=== PATIENT | female | born 1985 | race Caucasian/White ===

== ENCOUNTER 2018-03-26 11:46 | Day surgery (SDC) | payer OTHER ==
[2018-03-26] MEDS ORDERED: LR 1,000 ML IV ONE (11:58)
--- NOTE | 2018-03-26 12:06 | PDANEPAE ---
ANE History of Present Illness kidney stone ANE Past Medical History - Cardiovascular History Hx Hypertension: Yes Hx Arrhythmias: No Hx Chest Pain: No Hx Coronary Artery / Peripheral Vascular Disease: No Hx CHF / Valvular Disease: No Hx Palpitations: No Cardiovascular History Comment: JUST STARTED ON [place] PCP MONITORS - Pulmonary History Hx COPD: No Hx Asthma/Reactive Airway Disease: No Hx Recent Upper Respiratory Infection: No Hx Oxygen in Use at Home: No Hx Sleep Apnea: No Sleep Apnea Screening Result - Last Documented: Negative - Neurologic History Hx Cerebrovascular Accident: No Hx Seizures: No Hx Dementia: No - Endocrine History Hx Diabetes: No - Renal History Hx Renal Disorders: Yes Renal History Comment: CURRENT STONE AND URETHRA POLYP. HX OF UTI'S. HX OF KIDNEY STONES TREATMENT X 20+ - Liver History Hx Hepatic Disorders: No - Neurological & Psychiatric Hx Hx Neurological and Psychiatric Disorders: Yes Neurological / Psychiatric History Comment: ANXIETY - Cancer History Hx Cancer: No - Congenital Disorder History Hx Congenital Disorders: No - GI History Hx Gastrointestinal Disorders: Yes Gastrointestinal History Comment: REFLUX- NO MEDS CURRENTLY - Other Health History Other Health History: WEARS CONTACTS. CHRONIC PAIN. LUPUS. RA - Chronic Pain History Chronic Pain: Yes (CHRONIC BACK PAIN) - Surgical History Prior Surgeries: STAS. APPY. TUBAL LIGATION ANE Review of Systems Review of Systems: - Exercise capacity Exercise capacity: >=4 METS METS (RN): 4 METS ANE Patient History - Allergies Allergies/Adverse Reactions: amoxicillin [From Augmentin] Allergy (Verified 03/25/18 12:42) HX OF RXN BUT SHE THINKS SHE MAY HAVE HAD IT SINCE clavulanic acid [From Augmentin] Allergy (Verified 03/25/18 12:42) HX OF RXN BUT SHE THINKS SHE MAY HAVE HAD IT SINCE - Home Medications Home Medications: Cymbalta 03/25/18 [Last Taken 03/25/18] Losartan Potassium 03/25/18 [Last Taken 03/25/18] METHADONE HCL 20 mg PO TID 03/25/18 [Last Taken 03/26/18 05:00 20 MG] Mvi with Vit K 03/25/18 [Last Taken 03/25/18] - Smoking Hx Smoking Status: Light smoker - Family Anes Hx Family Hx Anesthesia Complications: NONE ANE Labs/Vital Signs - Vital Signs Height: 167.64 cm Weight: 90.718 kg ANE Physical Exam - Airway Neck exam: FROM Mallampati Score: Class 2 - Pulmonary Pulmonary: no respiratory distress - Cardiovascular Cardiovascular: regular rate and rhythym - ASA Status ASA Status: II ANE Anesthesia Plan Anesthesia Plan: GA w LMA
[2018-03-26] MEDS ORDERED: PROPOFOL 200 MG/20 ML VIAL ONE (12:08)
[2018-03-26] MEDS ORDERED: LIDOCAINE 2% 2 ML INJ ONE ×2 (12:09)
[2018-03-26] MEDS ORDERED: DEXAMETHASONE 4 MG/ML VIAL ONE ×2 (12:09)
[2018-03-26] MEDS ORDERED: ONDANSETRON 4 MG/2 ML VIAL ONE (12:09)
[2018-03-26] MEDS ORDERED: levOFLOXACIN 500 MG/DEXTROSE 100 ML IV ONE (13:24)
[2018-03-26] MEDS ORDERED: OPIUM/BELLADONNA ALKALO SUPP PR ONE (13:30)
[2018-03-26] MEDS ORDERED: MIDAZOLAM 2 MG/2 ML VIAL IVP ONE (13:40)
[2018-03-26] MEDS ORDERED: MIDAZOLAM 2 MG/2 ML VIAL ONE (13:44)
[2018-03-26] MEDS ORDERED: fentaNYL 100 MCG/2 ML INJ ONE (13:52)
[2018-03-26] MEDS ORDERED: IOPAMIDOL (ISOVUE-M 300) 15 ML VIAL ONE ×3 (14:07→14:15)
[2018-03-26] MEDS ORDERED: MEPERIDINE 25 MG/0.5 ML AMP IVP PRN (15:20)
[2018-03-26] MEDS ORDERED: METOCLOPRAMIDE 10 MG/2 ML VIAL IVP PRN (15:20)
[2018-03-26] MEDS ORDERED: PROMETHAZINE HCL 25 MG/ML INJ IVP PRN (15:20)
[2018-03-26] MEDS ORDERED: LR 500 ML IV PRN (15:20)
[2018-03-26] MEDS ORDERED: HYDROCODONE/APAP 5/325 TAB PO PRN (15:20)
[2018-03-26] MEDS ORDERED: NALOXONE HCL 0.4 MG/ML INJ IVP PRN (15:20)
[2018-03-26] MEDS ORDERED: LABETALOL HCL 5 MG/ML 20 ML MDV IVP PRN (15:20)
[2018-03-26] MEDS ORDERED: HYDROmorphONE/DILAUDID 2 MG/ML INJ IVP PRN (15:20)
[2018-03-26] MEDS: fentaNYL 100 MCG/2 ML INJ IVP PRN ×2 (15:42→16:02)
--- NOTE | 2018-03-26 15:50 | POSTOPPROG ---
Post Op Note Date of Operation: 03/26/18 Surgeon: Zuri Puente Anesthesiologist: Mara Anesthesia: GET(General Endotracheal) Pre-op Diagnosis: right ureteral stone, right UO polyp Post-op Diagnosis: same Indication: stone and polyp Procedure: cysto, removal bladder polyp, RURS, laser, stent, RGP, basket ext stone Findings: small polyp left UO, normal L RGP, R ureteral stone Inf/Abcess present in the surg proc area at time of surgery?: No Depth: Superfical (Skin SQ) EBL: Minimal Complications: none, pt tolerated procedure well Specimen(s): stone and bladder/UO polyp
[2018-03-26] MEDS ORDERED: HYDROCODONE/APAP 5/325 TAB ONE (15:52)
[2018-03-26 16:56] VITALS: BP 123/65
--- NOTE | 2018-03-27 07:36 | GOP ---
DATE OF OPERATION: 03/26/2018 SURGEON: Zuri Puente MD ANESTHESIA: General. ANESTHESIOLOGIST: Mara. PREOPERATIVE DIAGNOSIS: Right ureteral stone and left ureteral orifice polyp. POSTOPERATIVE DIAGNOSIS: Right ureteral stone and left ureteral orifice polyp. PROCEDURE PERFORMED: Cystoscopy, removal of the left bladder/urethral polyp with biopsy forceps, right ureteroscopy, laser lithotripsy, stent, retrograde pyelogram on the right and the left collecting system, and basket extraction of stone and stent 6-Faroese multivariable. Removal of the bladder, ureteral orifice polyp and fulguration of the bed. FINDINGS: A small polyp just in the left ureteral orifice at the level of the bladder. It was easily removed with biopsy forceps. The left collecting system had a normal retrograde pyelogram without any other filling defects, and there was a right ureteral stone. SPECIMENS: Stone in the bladder, ureteral/ureteral orifice polyp. ESTIMATED BLOOD LOSS: Minimal. INDICATIONS: A right ureteral stone and a polyp in her bladder. DESCRIPTION OF PROCEDURE: The patient was seen last week at [facility], where a stent was placed. She came today for treatment of her right-sided stone. Also, when the stent was placed, there was a small polyp that was noted on the ureteral orifice on the left side, and we were going to remove this at the same time. The rationale, risks and benefits of the procedure including bleeding, infection, pain, injury to the urethra, the bladder, the ureter, need for subsequent procedures were discussed with the patient and the patient agreed to proceed. The patient was taken back to the cystoscopy suite, placed on the cystoscopy table in the supine position. General anesthesia induced without complication. Time-out performed and core measures satisfied including placement of a Rocio Hugger, SCDs, and administration of Levaquin antibiotics. She was brought to the end of the table. Placed in the dorsal lithotomy position. All pressure points padded. Genitalia draped and prepped in the standard surgical fashion with Betadine. A rigid cystoscope easily cannulated the urethral meatus and was advanced atraumatically into the bladder. I 1st addressed the ureteral orifice polyp. I used cold cup biopsy forceps to grab the polyp, which was on the superficial edge of the ureteral orifice. It was not in it. It was on the superficial edge of the orifice, and I grasped the polyp, externalize it, and sent it to Pathology. I did use a Bugbee fulguration to fulgurate the bed. It was not in the ureteral orifice. I did not risk injury to any of the ureteral orifice opening, and hemostasis was excellent after the Bugbee. I then switched my fluid over from glycine to normal saline, and externalized the stent and did a retrograde pyelogram. There was no filling defects in the ureter, but I did see a filling defect in the right renal pelvis. I then placed 2 wires with cystoscopic and fluoroscopic guidance into the right collecting system, and then advanced a 12/14-Faroese ureteral access sheath over 1 of the wires. The ureteroscope was advanced to the level of the stone. The stone was lasered into dust and basketable fragments. All the basketable fragments were extracted and sent to Pathology. At the end the case, I felt I did clear her stone. She did have also another little stone that was seen and was basket extracted. She did have quite a bit of stone in the calices, indicating that she is a chronic stone former. Retrograde pyelogram performed and her right kidney was hydronephrotic. Once all the stone fragments were removed, I removed the sheath and the scope together, examining the wall of the ureter. The wall of the ureter looked healthy. I did do a retrograde pyelogram prior to doing this for ease of stent placement. I had a safety wire still up, and then I placed a 6-Faroese multivariable stent with fluoroscopic guidance over the wire. There was a nice curl in the renal pelvis and a nice curl in the bladder. Her bladder was then emptied. The scope was removed, and at this point, the procedure was considered complete. She was awoken from anesthesia, and transferred to PACU in good condition. COMPLICATIONS: None. The patient tolerated the procedure well. /[id number]/MODL MTDD
== END 2018-03-26 16:57 | disposition home or self-care (01) ==
LOC: FSGY 11:46
PROVIDERS: ATTEND Urology
PROC: 0T5 Urinary System, Destruction (ICD-10-PCS; principal; 2018-03-26 13:30)
PROC: 0TC38ZZ Extirpation of Matter from Right Kidney Pelvis, Via Natural or Artificial Opening Endoscopic (ICD-10-PCS; principal; 2018-03-26 13:30)
PROC: BT1FYZZ Fluoroscopy of Left Kidney, Ureter and Bladder using Other Contrast (ICD-10-PCS; principal; 2018-03-26 13:30)
PROC: 0TC68ZZ Extirpation of Matter from Right Ureter, Via Natural or Artificial Opening Endoscopic (ICD-10-PCS; principal; 2018-03-26 13:30)
PROC: 0TF68ZZ Fragmentation in Right Ureter, Via Natural or Artificial Opening Endoscopic (ICD-10-PCS; principal; 2018-03-26 13:30)
PROC: 0T768DZ Dilation of Right Ureter with Intraluminal Device, Via Natural or Artificial Opening Endoscopic (ICD-10-PCS; principal; 2018-03-26 13:30)
PROC: 0TB78ZX Excision of Left Ureter, Via Natural or Artificial Opening Endoscopic, Diagnostic (ICD-10-PCS; principal; 2018-03-26 13:30)
DX: N20.1 Calculus of ureter (principal); N30.80 Other cystitis without hematuria; I10 Essential (primary) hypertension; Z87.440 Personal history of urinary (tract) infections; Z87.442 Personal history of urinary calculi
CPT/HCPCS: 52352; 52354; 52356; 76001; C1769; C1894; 82365-90; C2625; J1100; J1956; J2250; J2405; J2704; J3010; Q9967